=== PATIENT | male | born 1985 | race Hispanic/Latino ===

== ENCOUNTER 2022-05-10 23:13 | Emergency (ER) | payer OTHER ==
[~2022-05-10] VITALS: Ht 154.9 cm; Wt 99.8 kg
[2022-05-10 23:28] LABS: APPEARANCE,URINE CLOUDY (CLEAR); BILIRUBIN,URINE NEGATIVE (NEGATIVE); COLOR,URINE YELLOW (YELLOW); GLUCOSE, URINE (UA) >=1000 mg/dL (NEGATIVE); KETONES,URINE NEGATIVE (NEGATIVE); LEUKOCYTE ESTERASE ,URINE 500 Leu/uL (NEGATIVE); NITRATE,URINE NEGATIVE (NEGATIVE); PH,URINE 5.5 (5.0-8.0); PROTEIN,URINE 30 mg/dL (NEGATIVE); UROBILINOGEN,URINE 0.2 mg/dL (0.2-1.0)
[2022-05-10 23:33] LABS: MUCUS,URINE FEW LPF (None Seen); SQUAMOUS EPITHELIAL CELL,UR RARE /HPF (0-2); WBC,URINE TNTC /HPF (0-1)
[2022-05-11] MEDS ORDERED: CEFTRIAXONE 1G VIAL IVP ONE (00:30)
[2022-05-11] MEDS ORDERED: CEFTRIAXONE 1G VIAL IM ONE (01:00)
[2022-05-11 01:49] VITALS: BP 142/82
[2022-05-11] MEDS ORDERED: CEFU500T67 PO (01:50)
== END 2022-05-11 01:55 | disposition home or self-care (01) ==
LOC: EDH 23:13
DX: N39.0 Urinary tract infection, site not specified (principal); Z88.8 Allergy status to other drugs, medicaments and biological substances; Z60.2 Problems related to living alone
CPT/HCPCS: 99283; 87088; 82948; 87797; 87486; 81001; 96372; J0696

== ENCOUNTER 2022-05-28 11:44 | Emergency (ER) | payer OTHER ==
[~2022-05-28] VITALS: Ht 154.9 cm; Wt 99.8 kg
[~2022-05-28 11:44] MED LIST: CEFU500T67 PO
[2022-05-28 13:16] LABS: BASOPHILS % (AUTO) 0.4 % (0.0-5.0); EOSINOPHILS % (AUTO) 2.5 % (0.0-8.0); HEMATOCRIT 42.2 % (42-54); LYMPHOCYTES % (AUTO) 30.9 % (21.0-51.0); MEAN CORPUSCULAR HEMOGLOBIN 29.2 pg (27.0-33.0); MEAN CORPUSCULAR HGB CONC 32.7 g/dL (32.0-36.0); MEAN CORPUSCULAR VOLUME 89.2 fL (79-99); NEUTROPHILS % (AUTO) 58.7 % (40.0-77.0); PLATELET COUNT (AUTO) 260 K/uL (130-400); RED BLOOD CELL COUNT(AUTO) 4.73 MIL/uL (4.50-6.20); RED CELL DISTRIBUTION WIDTH 12.3 % (11.0-15.5); WHITE BLOOD COUNT (AUTO) 10.6 K/uL (4.8-10.8)
[2022-05-28 13:25] LABS: CREATININE 0.7 mg/dL (0.5-1.5); POTASSIUM 3.8 mmol/L (3.5-5.1)
[2022-05-28 13:30] LABS: ALBUMIN 3.6 g/dL (3.5-5.0); TOTAL PROTEIN, SERUM 8.8 g/dL (6.0-8.3)
[2022-05-28 13:33] LABS: APPEARANCE,URINE CLEAR (CLEAR); BILIRUBIN,URINE NEGATIVE (NEGATIVE); COLOR,URINE COLORLESS (YELLOW); GLUCOSE, URINE (UA) NEGATIVE (NEGATIVE); KETONES,URINE NEGATIVE (NEGATIVE); LEUKOCYTE ESTERASE ,URINE 250 Leu/uL (NEGATIVE); NITRATE,URINE NEGATIVE (NEGATIVE); OCCULT BLOOD,URINE NEGATIVE (NEGATIVE); PH,URINE 5.5 (5.0-8.0); PROTEIN,URINE NEGATIVE (NEGATIVE); UROBILINOGEN,URINE 0.2 mg/dL (0.2-1.0)
[2022-05-28 13:36] LABS: RBC,URINE 0-1 /HPF (0-1); SQUAMOUS EPITHELIAL CELL,UR RARE /HPF (0-2)
[2022-05-28] MEDS ORDERED: FAMOTIDINE 20MG VIAL IV ONE (15:30)
[2022-05-28] MEDS ORDERED: 0.9%NACL 1000ML 1,000 ML IV ONE (15:30)
[2022-05-28] MEDS ORDERED: MORPHINE 4 MG SYG IVP ONE (15:30)
[2022-05-28] MEDS ORDERED: ONDANSETRON 4MG INJ IVP ONE (15:30)
[2022-05-28 16:19] VITALS: BP 138/88
[2022-05-28] MEDS ORDERED: PHEN-847 PO (18:14)
[2022-05-28] MEDS ORDERED: SULF1TAB42 PO (18:14)
== END 2022-05-28 18:58 | disposition home or self-care (01) ==
LOC: EDH 11:44
DX: N39.0 Urinary tract infection, site not specified (principal); Z79.899 Other long term (current) drug therapy; Z88.8 Allergy status to other drugs, medicaments and biological substances
CPT/HCPCS: 99285; 74176; 96374; 96375; 80053; 85025; 87088; 81001; 36415; J3490; J2405; J2270

== ENCOUNTER 2024-06-03 09:21 | Emergency (ER) | payer SELFPAY ==
[~2024-06-03] VITALS: Ht 154.9 cm; Wt 81.6 kg
[~2024-06-03 09:21] MED LIST changes: +PHEN-847 PO; +SULF1TAB42 PO
--- NOTE | 2024-06-03 10:18 | ERN ---
ED Note History of Present Illness Stated Complaint: CLOGGED EARS Chief Complaint: Earache Time Seen by MD: 09:32 Dictation: 39-year-old male presents to the ED for evaluation of bilateral clogged ears for the past two days. Patient states he has some hearing on his right ear but is unable to hear anything on his left ear. Patient denies any fever, ear pain or any other associated symptoms at this time. Allergies: Coded Allergies: levofloxacin (Unverified Allergy, Severe, 05/10/22) Home Meds Active Scripts Phenazopyridine HCl (Pyridium) 200 Mg Tab, 200 MG PO TIDPC for BURNING for 3 Days, #6 TAB TAKE WITH FOOD TO PREVENT STOMACH UPSET. Prov:TORREY LYLES DNP 05/28/22 Sulfamethoxazole/Trimethoprim (Bactrim Ds Tablet) 1 Each Tablet, 1 TAB PO BID for UTI for 7 Days, #14 TAB 0 Refills Prov:TORREY LYLES DNP 05/28/22 Cefuroxime Axetil (Cefuroxime) 500 Mg Tablet, 500 MG PO BID, #20 TAB Prov:ALEXA LONDON MD 05/11/22 Past Medical History Past Medical History: Diabetes-Type II, UTI Surgical History: None Family History: Negative Social History: Negative, Lives alone Review of System Dictation Constitutional: Negative for fever,chills, and weight loss Eyes: Negative for injury, pain,redness, and discharge ENT: Positive for bilateral clogged ears Negative for injury,pain or swelling Cardiovascular: Negative for chest pain, palpitations, and edema Respiratory: Negative for shortness of breath, cough, and wheezing, Abdomen/GI: Negative for abdominal pain, nausea, vomiting, diarrhea, and constipation Back: Negative for injury and pain : Negative for injury, bleeding and discharge MS/Extremity: Negative for injury and deformity Skin: Negative for rash, and discoloration Neuro: Negative for headache, weakness, numbness, tingling, and seizure Psych: Negative for suicide ideation, homicidal ideation, and hallucinations Initial Vital Sign VS Vital Signs Date Time Temp Pulse Resp B/P (MAP) Pulse Ox O2 Delivery O2 Flow Rate FiO2 06/03/24 10:07 98.4 79 20 149/91 Room Air 06/03/24 11:24 98 0 21 Physical Exam Dictation General: awake, alert, NAD Head/Face: Normocephalic, atraumatic Eyes: PERRL, EOMI, vision at baseline ENT: oral cavity clear, bilateral ear cerumen impaction Neck: Trachea midline, supple, no nuchal rigidity Cardiovascular: RRR, normal S1/S2, No MRGs, no JVD Respiratory: CTAB, no respiratory distress, No rales or wheezes Abdomen: Soft, non-tender, non-distended, normal bowel sounds, no guarding or rebound. Skin: Warm, dry, normal turgor, no rash MS/Extremity: Pulses equal, no cyanosis, neurovascular intact, FROM Neuro: COAx4, GCS 15, strength 5/5, CN 2-12 intact, normal cerebellar exam, normal gait, Psych: Normal behavior, mood, and affect normal ED Course ED Course Orders Procedure Category Date Status Time *Nursing CPOE 06/03/24 Transmitted Communication: 10:32 Vital Signs Date Time Temp Pulse Resp B/P (MAP) Pulse Ox O2 Delivery O2 Flow Rate FiO2 06/03/24 11:24 98.4 79 20 149/81 98 Room Air* 0 21 06/03/24 10:07 98.4 79 20 149/91 Room Air Medical Decision Making MDM MDM: Differential diagnosis: Cerumen impaction, OM Risk of complication and/or morbidity or mortality of patient management: None Medications-Per medication reconciliation Need for hospitalization: Patient does not meet criteria for hospitalization. Need for emergency major/minor surgery: No There are no social concerns with this patient. I independently interpreted the test that were performed, results were reviewed by me and considered findings on radiology if ordered. DX & DISP Disposition: Discharge Departure Impression: Primary Impression: Impacted cerumen, bilateral Condition: Stable Referrals: SELF,REFERRAL (PCP) ARNOLD IRELAND MD Jun 03, 2024 10:18
[2024-06-03 11:24] VITALS: BP 149/81; PULSE 79; RESP 20; TEMP 98.5; O2SAT 98
--- NOTE | 2024-06-03 12:05 | NUR ---
BOTH EARS IRRIGATED. PT TOLERATED WELL
== END 2024-06-03 12:09 | disposition home or self-care (01) ==
LOC: EDH 09:21
DX: H61.23 Impacted cerumen, bilateral (principal); E11.9 Type 2 diabetes mellitus without complications; Z88.1 Allergy status to other antibiotic agents
CPT/HCPCS: 69209; 99281; 99282